=== PATIENT | female | born 1995 | race Caucasian/White ===

== ENCOUNTER 2024-08-22 11:22 | Outpatient (OUT) | payer OTHER, SELFPAY ==
--- NOTE | 2024-08-22 11:29 | XR_ITS ---
The [address] [address] Patient Name: GILES HANSON MRN: [id number] date: 1995 Sex: F Assigned Patient Location: [facility] Current Patient Location: Accession/Order Number: [id number] Exam Date: 08/22/2024 11:33 Report Date: 08/23/2024 09:25 At the request of: RIZWANA LUNA Procedure: XR chest 2V PROCEDURE: XR chest 2V DATE: 08/22/2024 11:33 AM EST COMPARISONS: None. CLINICAL INDICATION: 29 years Female Bronchitis FINDINGS: The cardiomediastinal silhouette and pulmonary vasculature are within normal limits. There is heterogeneous airspace disease of the mid and lower aspect of the left upper lobe consistent with inflammatory infiltrate (pneumonia). The right lung field is clear There is no evidence of pleural effusion or pneumothorax. XR/XR chest 2V IMPRESSION: Findings consistent with left upper lobe pneumonia Electronically authenticated by: EVANS LAMAS Date: 08/23/2024 09:25
== END 2024-08-22 11:23 | disposition home or self-care (01) ==
LOC: RAD 11:26
PROVIDERS: PCP Family Medicine; Visit Provider Family Medicine
DX: J40 Bronchitis, not specified as acute or chronic (principal); J18.8 Other pneumonia, unspecified organism
CPT/HCPCS: 71046